=== PATIENT | male | born 1955 | race African-American/Black ===

== ENCOUNTER 2024-02-22 08:53 | Emergency (ER) | payer MEDICARE ==
[~2024-02-22] VITALS: Ht 190.5 cm; Wt 97.5 kg
[2024-02-22 09:02] VITALS: TEMP 98.4; O2SAT 100
[2024-02-22 11:36] VITALS: BP 199/119; PULSE 91; RESP 16
[2024-02-22] MEDS: HYDROCODONE/ACETAMINOPHEN 5/325MG TABLET PO ONE (11:36)
[2024-02-22 11:55] LABS: CLARITY URINE CLEAR (CLEAR); COLOR URINE YELLOW (YELLOW); GLUCOSE URINE NEGATIVE (NEGATIVE); KETONES URINE NEGATIVE (NEGATIVE); LEUKOCYTE ESTERASE URINE NEGATIVE (NEGATIVE); NITRITE URINE NEGATIVE (NEGATIVE); OCCULT BLOOD URINE 2+ (NEGATIVE); PH URINE 6.5 (4.5-8.0); PROTEIN URINE NEGATIVE (NEGATIVE); SPECIFIC GRAVITY URINE 1.017 (1.005-1.030); UROBILINOGEN URINE 0.2 E.U./dL (0.2-1.0)
[2024-02-22 12:17] LABS: RBC URINE 25-50 /hpf (0-2); WBC URINE 0-2 /hpf (0-2)
[2024-02-22 12:25] LABS: BACTERIA URINE NONE SEEN; MUCUS URINE 2+ /lpf (NONE/TRACE); SQUAMOUS EPITHELIAL CELL URINE NONE SEEN /lpf (RARE/1+)
[2024-02-22 12:46] LABS: HEMATOCRIT 44.5 % (42.0-52.0); HEMOGLOBIN 14.5 g/dL (14.0-18.0); MEAN CORPUSCULAR HEMOGLOBIN 28.6 pg (28.0-32.0); MEAN CORPUSCULAR HGB CONC 32.6 g/dL (31.0-37.0); MEAN CORPUSCULAR VOLUME 87.7 fL (80.0-94.0); PLATELET 270 x1000/uL (130-400); RED BLOOD CELL COUNT 5.07 mill/uL (4.7-6.1); RED CELL DISTRIBUTION WIDTH 14.3 % (11.6-14.6); WHITE BLOOD COUNT 4.7 x1000/uL (4.5-11.0)
[2024-02-22 13:00] LABS: CHLORIDE 106 mEq/L (98-107); POTASSIUM 4.7 mEq/L (3.5-5.1); SODIUM 137 mEq/L (136-145)
[2024-02-22 13:01] LABS: CALCIUM 9.1 mg/dL (8.7-10.4); CARBON DIOXIDE 28 mEq/L (21-32)
[2024-02-22 13:06] LABS: CREATININE 1.2 mg/dL (0.6-1.3); GLUCOSE 121 mg/dL (70-105); UREA NITROGEN BLOOD 11 mg/dL (9-23)
[2024-02-22] MEDS ORDERED: TAMS-11 MT (13:50)
[2024-02-22] MEDS ORDERED: CEFP100S5 MT (13:50)
== END 2024-02-22 13:08 | disposition home or self-care (01) ==
LOC: ER 08:53
DX: R33.9 Retention of urine, unspecified (principal); J45.909 Unspecified asthma, uncomplicated; Z88.1 Allergy status to other antibiotic agents
CPT/HCPCS: 36415; 51702; 80048; 81003; 85027; 99283

== ENCOUNTER 2024-02-28 16:37 | Emergency (ER) | payer MEDICARE ==
[~2024-02-28] VITALS: Ht 190.5 cm; Wt 99.0 kg
[~2024-02-28 16:37] MED LIST: CEFP100S5 MT; TAMS-11 MT
[2024-02-28 16:59] VITALS: O2SAT 98
[2024-02-28 22:42] LABS: CLARITY URINE CLEAR (CLEAR); COLOR URINE ORANGE (YELLOW); GLUCOSE URINE NEGATIVE (NEGATIVE); KETONES URINE 1+ (NEGATIVE); LEUKOCYTE ESTERASE URINE 1+ (NEGATIVE); NITRITE URINE NEGATIVE (NEGATIVE); OCCULT BLOOD URINE 3+ (NEGATIVE); PROTEIN URINE 2+ (NEGATIVE); SPECIFIC GRAVITY URINE 1.021 (1.005-1.030); UROBILINOGEN URINE 0.2 E.U./dL (0.2-1.0)
[2024-02-28] MEDS ORDERED: SULF1TAB48 MT (22:58)
[2024-02-28 22:59] LABS: BACTERIA URINE 2+; RBC URINE TNTC /hpf (0-2); SQUAMOUS EPITHELIAL CELL URINE FEW /lpf (RARE/1+)
[2024-02-28 23:05] VITALS: BP 129/75; PULSE 80; RESP 16; TEMP 36.66960; O2SAT 98
== END 2024-02-28 23:08 | disposition home or self-care (01) ==
LOC: ER 16:37
DX: R82.71 Bacteriuria (principal)
CPT/HCPCS: 81003; 99282